=== PATIENT | female | born 1990 | race Two or more races ===

== ENCOUNTER 2021-10-23 23:19 | Emergency (ER) | payer SELFPAY ==
[~2021-10-23] VITALS: Ht 175.3 cm; Wt 81.6 kg
[2021-10-24] MEDS ORDERED: FAMOTIDINE (10MG/ML) 2ML VL IV ONE (00:30)
[2021-10-24] MEDS ORDERED: DexAMETHasone SOD PHOS 10MG/1ML VIAL INJ IV ONE (00:30)
[2021-10-24] MEDS ORDERED: diphenhdrAMINE HCL 50 MG/1 ML VL IV ONE (00:30)
[2021-10-24] MEDS ORDERED: EPIN30IN IJ (01:27)
[2021-10-24 01:37] VITALS: BP 127/80
== END 2021-10-24 01:43 | disposition home or self-care (01) ==
LOC: ER 23:19
DX: T78.40XA Allergy, unspecified, initial encounter (principal); X58.XXXA Exposure to other specified factors, initial encounter; Z91.010 Allergy to peanuts
CPT/HCPCS: 96374; 96375; 99284; J1100; J1200; J3490